=== PATIENT | female | born 1945 | race Hispanic/Latino ===

== ENCOUNTER 2018-01-23 13:42 | Emergency (ER) | payer MEDICARE ==
[2018-01-23] MEDS ORDERED: DEXAMETHASONE SOD PHOSPHATE 10MG/ML 1ML VIAL ONE (14:54)
[2018-01-23] MEDS ORDERED: IPRATROPIUM/ALBUTEROL SULFATE 3 ML SOLUTION IH ONE (15:15)
== END 2018-01-23 16:22 | disposition home or self-care (01) ==
LOC: EDH 13:42
DX: J20.9 Acute bronchitis, unspecified (principal); I10 Essential (primary) hypertension; Z88.0 Allergy status to penicillin; Z90.710 Acquired absence of both cervix and uterus; Z98.890 Other specified postprocedural states
CPT/HCPCS: 71046; 94640; 96372; 99284; J1100

== ENCOUNTER 2020-05-07 11:28 | Emergency (ER) | payer MEDICARE | END 2020-05-07 12:09 | disposition home or self-care (01) | LOC: EDH 11:28 | DX: I83.891 Varicose veins of right lower extremity with other complications (principal); I10 Essential (primary) hypertension; Z88.0 Allergy status to penicillin; Z90.710 Acquired absence of both cervix and uterus; Z90.49 Acquired absence of other specified parts of digestive tract | CPT/HCPCS: 99281 ==